=== PATIENT | female | born 1990 | race Caucasian/White ===

== ENCOUNTER 2017-03-04 17:01 | Emergency (ER) | payer OTHER ==
[~2017-03-04] VITALS: Ht 152.4 cm; Wt 68.0 kg
[~2017-03-04 17:01] MED LIST: CARB200T6 PO
[2017-03-04 18:12] VITALS: BP 156/89
== END 2017-03-04 18:39 | disposition home or self-care (01) ==
LOC: EMS 17:02
DX: Z76.0 Encounter for issue of repeat prescription (principal)
CPT/HCPCS: 99281; 99283

== ENCOUNTER 2017-04-18 13:09 | Emergency (ER) | payer OTHER ==
[~2017-04-18] VITALS: Ht 152.4 cm; Wt 72.7 kg
[2017-04-18 14:03] VITALS: BP 145/75
== END 2017-04-18 14:11 | disposition home or self-care (01) ==
LOC: EMS 13:09
DX: Z76.0 Encounter for issue of repeat prescription (principal)
CPT/HCPCS: 99283

== ENCOUNTER 2017-05-05 22:06 | Emergency (ER) | payer OTHER ==
[~2017-05-05] VITALS: Ht 152.4 cm; Wt 68.0 kg
[2017-05-05] MEDS ORDERED: CarBAMazepine 200 MG TABLET PO ONE (22:45)
[2017-05-05 23:16] VITALS: BP 137/89
== END 2017-05-05 23:24 | disposition home or self-care (01) ==
LOC: EMS 22:10
DX: Z76.0 Encounter for issue of repeat prescription (principal)
CPT/HCPCS: 99283

== ENCOUNTER 2017-05-16 12:48 | Emergency (ER) | payer OTHER ==
[~2017-05-16] VITALS: Ht 152.4 cm; Wt 72.7 kg
[2017-05-16 14:23] VITALS: BP 142/85
== END 2017-05-16 14:24 | disposition home or self-care (01) ==
LOC: EMS 12:49
DX: Z76.0 Encounter for issue of repeat prescription (principal); R03.0 Elevated blood-pressure reading, without diagnosis of hypertension; R20.0 Anesthesia of skin; R42 Dizziness and giddiness; R51 Headache; R11.2 Nausea with vomiting, unspecified; R53.1 Weakness
CPT/HCPCS: 99283

== ENCOUNTER 2017-07-29 20:35 | Emergency (ER) | payer OTHER ==
[~2017-07-29] VITALS: Ht 149.9 cm; Wt 68.6 kg
[2017-07-29 20:46] VITALS: BP 127/82
[2017-07-29] MEDS ORDERED: CARB200T6 PO ×2 (20:50)
== END 2017-07-29 21:14 | disposition home or self-care (01) ==
LOC: EMS 20:35
DX: Q85.8 Other phakomatoses, not elsewhere classified (principal); G40.909 Epilepsy, unspecified, not intractable, without status epilepticus; Z76.0 Encounter for issue of repeat prescription
CPT/HCPCS: 99283

== ENCOUNTER 2017-08-28 18:18 | Emergency (ER) | payer OTHER ==
[~2017-08-28] VITALS: Ht 149.9 cm; Wt 72.5 kg
[2017-08-28 19:20] VITALS: BP 135/79
== END 2017-08-28 19:28 | disposition home or self-care (01) ==
LOC: EMS 18:19
DX: Z76.0 Encounter for issue of repeat prescription (principal); G43.909 Migraine, unspecified, not intractable, without status migrainosus; R03.0 Elevated blood-pressure reading, without diagnosis of hypertension
CPT/HCPCS: 99283

== ENCOUNTER 2017-10-05 16:58 | Emergency (ER) | payer OTHER ==
[~2017-10-05] VITALS: Ht 152.4 cm; Wt 75.0 kg
[2017-10-05] MEDS ORDERED: CARB200T6 PO (17:02)
[2017-10-05 18:52] VITALS: BP 132/66
== END 2017-10-05 19:12 | disposition home or self-care (01) ==
LOC: EMS 17:00
DX: Z76.0 Encounter for issue of repeat prescription (principal)
CPT/HCPCS: 99283

== ENCOUNTER 2018-07-19 12:21 | Emergency (ER) | payer OTHER ==
[~2018-07-19] VITALS: Ht 149.9 cm; Wt 72.5 kg
[2018-07-19 14:15] VITALS: BP 119/82
== END 2018-07-19 14:49 | disposition home or self-care (01) ==
LOC: EMS 12:22
DX: G40.909 Epilepsy, unspecified, not intractable, without status epilepticus (principal); Q85.8 Other phakomatoses, not elsewhere classified; Z79.899 Other long term (current) drug therapy
CPT/HCPCS: 99285